=== PATIENT | female | born 1965 | race Caucasian/White ===

== ENCOUNTER 2017-04-16 00:07 | Emergency (ER) | payer OTHER ==
[~2017-04-16] VITALS: Ht 157.5 cm; Wt 65.0 kg
[2017-04-16] MEDS ORDERED: LIDOCAINE HCL 1%/EPI 1:200,000 30 ML VIAL MC ONE (01:15)
[2017-04-16] MEDS ORDERED: BACITRACIN ZINC OINT UDPKT TOP ONE (01:15)
[2017-04-16 04:29] VITALS: BP 118/80
== END 2017-04-16 05:20 | disposition home or self-care (01) ==
LOC: ER 00:09
DX: J32.9 Chronic sinusitis, unspecified (principal); R55 Syncope and collapse; Z85.3 Personal history of malignant neoplasm of breast; Y09 Assault by unspecified means; Y99.8 Other external cause status; Y93.89 Activity, other specified; Y92.89 Other specified places as the place of occurrence of the external cause
CPT/HCPCS: 70450; 70486; 99284